=== PATIENT | male | born 1990 | race Caucasian/White ===

== ENCOUNTER 2022-01-03 15:23 | Emergency (ER) | payer OTHER ==
[~2022-01-03] VITALS: Ht 180.3 cm; Wt 98.0 kg
[2022-01-03] MEDS ORDERED: ONDANSETRON 4MG/2ML VIAL IV ONE (17:10)
[2022-01-03] MEDS ORDERED: NS 1,000 ML IV ONE (17:10)
[2022-01-03] MEDS ORDERED: KETOROLAC 30 MG/ML 1ML VIAL IV ONE (17:45)
[2022-01-03 18:17] LABS: BASO % 0.3 % (0.0-1.0); EOS # 0.1 10^3/uL (0.0-0.5); EOS % 1.6 % (0.0-3.0); HEMATOCRIT 43.5 % (42.0-52.0); HEMOGLOBIN 15.3 g/dl (13.5-17.5); LYMPH # 1.2 10^3/uL (1.5-5.0); MEAN CORPUSCULAR HEMOGLOBIN 29.2 pg (27.0-33.0); MEAN CORPUSCULAR HGB CONC 35.2 g/dl (32.0-36.5); MONO # 0.5 10^3/uL (0.0-0.8); MONO % 13.4 % (2.0-8.0); NEUTROPHILS # 1.9 10^3/uL (1.5-8.5); NEUTROPHILS % 51.7 % (36.0-66.0); PLATELET COUNT, AUTOMATED 194 10^3/uL (150-450); RED BLOOD COUNT 5.24 10^6/uL (4.30-6.10); WHITE BLOOD COUNT 3.7 10^3/uL (4.0-10.0)
[2022-01-03 18:58] LABS: ALBUMIN 3.8 GM/DL (3.2-5.2); ALT/SGPT 29 U/L (12-78); BILIRUBIN,DIRECT 0.1 MG/DL (0.0-0.2); BILIRUBIN,TOTAL 0.4 MG/DL (0.2-1.0); BLOOD UREA NITROGEN 12 MG/DL (7-18); CALCIUM LEVEL 8.9 MG/DL (8.5-10.1); CARBON DIOXIDE LEVEL 29 MEQ/L (21-32); CHLORIDE LEVEL 105 MEQ/L (98-107); CREATININE FOR GFR 1.14 MG/DL (0.70-1.30); GLOMERULAR FILTRATION RATE > 60.0 (>60); GLUCOSE, FASTING 88 MG/DL (70-100); LIPASE 201 U/L (73-393); POTASSIUM SERUM 4.3 MEQ/L (3.5-5.1); SODIUM LEVEL 138 MEQ/L (136-145)
[2022-01-03 20:17] VITALS: BP 120/76
[2022-01-03] MEDS ORDERED: MIRA3350 PO (20:46)
[2022-01-03] MEDS ORDERED: ONDA4TAB6 PO (20:46)
== END 2022-01-03 21:02 | disposition home or self-care (01) ==
LOC: M ED 15:23
DX: K59.00 Constipation, unspecified (principal)
CPT/HCPCS: 74018; 80048; 80076; 83690; 85025; 96361; 96374; 96375; 99284; J1885; J2405